=== PATIENT | male | born 1970 | race African-American/Black ===

== ENCOUNTER 2022-06-05 17:27 | Emergency (ER) | payer OTHER ==
[~2022-06-05] VITALS: Ht 167.6 cm; Wt 84.0 kg
[2022-06-05 17:31] VITALS: BP 122/59
[2022-06-05] MEDS ORDERED: BACITRACIN ZINC OINT UDPKT TOP ONE (18:45)
[2022-06-05] MEDS ORDERED: [UNRECOGNIZED DRUG - CODE] MC (18:48)
[2022-06-05] MEDS ORDERED: FOAM1BAN TP (18:48)
== END 2022-06-05 19:00 ==
LOC: ER 17:27
DX: L89.153 Pressure ulcer of sacral region, stage 3 (principal); Z43.3 Encounter for attention to colostomy; G82.20 Paraplegia, unspecified; T14.8XXS Other injury of unspecified body region, sequela; X93.XXXS Assault by handgun discharge, sequela; Z99.3 Dependence on wheelchair; Z87.891 Personal history of nicotine dependence; Z88.0 Allergy status to penicillin
CPT/HCPCS: 99283

== ENCOUNTER 2022-07-05 12:57 | Emergency (ER) | payer MEDICARE, MEDICAID ==
[~2022-07-05] VITALS: Ht 165.1 cm; Wt 85.0 kg
[~2022-07-05 12:57] MED LIST: FOAM1BAN TP; [UNRECOGNIZED DRUG - CODE] MC
[2022-07-05 16:18] VITALS: BP 144/73
== END 2022-07-05 18:21 | disposition home or self-care (01) ==
LOC: ER 14:09
DX: N62 Hypertrophy of breast (principal); Z89.511 Acquired absence of right leg below knee; Z93.3 Colostomy status; Z88.0 Allergy status to penicillin
CPT/HCPCS: 71046; 76642; 99284

== ENCOUNTER 2023-02-04 12:45 | Emergency (ER) | payer MEDICAID, MEDICARE, OTHER ==
[~2023-02-04] VITALS: Ht 172.7 cm; Wt 81.0 kg
[2023-02-04 12:49] VITALS: BP 136/84; PULSE 76; RESP 16; TEMP 98.3; O2SAT 99
[2023-02-04] MEDS ORDERED: BACITRACIN ZINC OINT UDPKT TOP ONE ×3 (13:30→13:45)
[2023-02-04] MEDS ORDERED: DOXY150C6 PO (14:46)
[2023-02-04] MEDS ORDERED: BO1 TP (14:46)
[2023-02-04] MEDS ORDERED: TRANEXAMIC ACID 1,000 MG/10 ML TP ONE (15:15)
== END 2023-02-04 16:06 ==
LOC: ER 12:45
DX: L89.899 Pressure ulcer of other site, unspecified stage (principal); L89.159 Pressure ulcer of sacral region, unspecified stage; Z88.0 Allergy status to penicillin; Z98.890 Other specified postprocedural states
CPT/HCPCS: 99283